=== PATIENT | male | born 1940 ===

== ENCOUNTER 2023-09-05 06:00 | Day surgery (SDC) | payer OTHER ==
[2023-08-31 09:23] LABS: HEMATOCRIT 42.2 % (39.0-48.0); HEMOGLOBIN 13.6 g/dL (13-16.00); MEAN CELL VOLUME 90.1 fL (80.0-100.00); MEAN CORPUSCULAR HGB CONC 32.2 g/dl (32.0-36.0); PLATELET COUNT 197 K/uL (150-450); RED BLOOD COUNT 4.68 M/uL (4.00-6.00); RED CELL DISTRIBUTION WIDTH 14.2 % (11.5-14.5)
[2023-08-31 09:28] LABS: PH,URINE 5.5 (5.0-8.0); URINE APPEARANCE Clear; URINE BILIRRUBIN Negative (NEGATIVE); URINE BLOOD Moderate; URINE COLOR Yellow; URINE GLUCOSE Negative (NEGATIVE); URINE LEUKOCYTE Negative; URINE NITRATE Negative; URINE PROTEIN Negative (NEGATIVE); URINE UROBILINOGEN 0.2 E.U./dl
[2023-08-31 09:30] LABS: URINE EPITHELIAL CELLS 2.9 uL (0.0-38.8); URINE RBC 41.3 uL (0.0-20.8)
[2023-08-31 09:37] LABS: URINE BACTERIA 2.5 uL (0.0-1933); URINE WBC 1.5 uL (0.0-23.2)
[2023-08-31 10:02] LABS: CALCIUM 8.8 mg/dL (8.5-10.1); CREATININE SERUM 0.74 mg/dL (0.70-1.30); GFR 101.26; POTASSIUM 4.14 mEq/L (3.5-5.1)
[2023-08-31 10:06] LABS: INR 0.98; PARTIAL THROMBOPLASTIN TIME 28.2 SECONDS (22.0-34.0); PROTHROMBIN TIME 10.3 SECONDS (9.0-11.5)
[~2023-09-05 06:00] MED LIST: AMLODIPINE BESYL5 MG PO; BRIMONIDINE TART5 ML OPHT; CENTRUM COMPLE1 EACH PO; DORZOLAMIDE HCL10 ML OPHT; IRON PO; ISTALOL2.5 ML OTIC; SYNTH; XELPROS2.5 ML OP
== END 2023-09-05 15:10 | disposition home or self-care (01) ==
LOC: CIR.AMB 06:00
PROVIDERS: ATTEND Surgery Surgery of the Hand
DX: M67.844 Other specified disorders of tendon, left hand (principal); M65.322 Trigger finger, left index finger; M65.332 Trigger finger, left middle finger; Z20.822 Contact with and (suspected) exposure to COVID-19